=== PATIENT | female | born 1950 | race Caucasian/White ===

== ENCOUNTER → 2017-04-21 | Outpatient (CLI) | payer OTHER, MEDICARE ==
--- NOTE | 2017-04-24 08:01 | MAMMOGRAPHY REPORT ---
BILATERAL DIGITAL SCREENING MAMMOGRAM TOMOSYNTHESIS WITH CAD: 04/21/2017 CLINICAL HISTORY: Routine screening. Patient has no complaints. TECHNIQUE: Breast tomosynthesis in addition to standard 2D mammography was performed. Current study was also evaluated with a Computer Aided Detection (CAD) system. COMPARISON: Comparison is made to exams dated: 02/12/2016 mammogram, 12/09/2015 mammogram, 03/19/2015 ul trasound biopsy, 03/19/2015 mammogram, 02/02/2015 ultrasound, and 02/02/2015 mammogram - [facility]. BREAST COMPOSITION: There are scattered areas of fibroglandular density in both breasts. FINDINGS: There is a possible new small cluster of calcifications in the left upper inner quadrant m iddle depth, for which spot magnification views are recommended for further evaluation. The remainder of both breasts are stable compared to prior exams, without suspicious masses, calcific ations, or areas of architectural distortion noted. Biopsy marker clips are again noted bilaterally. Other scattered bilateral benign appearing calcifications are not significantly changed. IMPRESSION: ACR BI-RADS CATEGORY 0: INCOMPLETE EVALUATION: NEED ADDITIONAL IMAGING EVALUATION Left upper inner quadrant calcifications, for which additional imaging evaluation is recommended. Th e patient will be called to schedule an appointment. Approximately 10% of breast cancers are not detected with mammography. A negative mammographic report should not delay biopsy if a clinically suggestive mass is present. Pippa Isaac M.D. ah/:04/22/2017 10:51:51 Dandy Tender: Kimberley JAMES,R, M, [facility] letter sent: Addl Imaging 0 BI-RADS Code: ACR BI-RADS Category 0: Incomplete Evaluation: Need Additional Imaging Evaluation
== END | disposition home or self-care (01) ==
LOC: C.MAMM 13:25
PROVIDERS: ATTEND Family Medicine
DX: Z12.31 Encounter for screening mammogram for malignant neoplasm of breast (principal); R92.1 Mammographic calcification found on diagnostic imaging of breast

== ENCOUNTER → 2017-05-02 | Outpatient (CLI) | payer OTHER, MEDICARE ==
--- NOTE | 2017-05-02 15:21 | MAMMOGRAPHY REPORT ---
UNILATERAL LEFT DIGITAL DIAGNOSTIC MAMMOGRAM: 05/02/2017 CLINICAL HISTORY: 67-year-old woman with a history of prior benign bilateral breast biopsies called b ack from recent screening mammogram for new microcalcifications in the left breast. TECHNIQUE: Spot magnification CC and ML views were obtained. COMPARISON: Comparison is made to exams dated: 04/21/2017 mammogram, 02/12/2016 mammogram, 12/09/2015 m ammogram, 03/19/2015 ultrasound biopsy, 03/19/2015 mammogram, and 02/02/2015 ultrasound - [facility]. BREAST COMPOSITION: There are scattered areas of fibroglandular density in the left breast. FINDINGS: There is a 3 mm cluster of amorphous versus pleomorphic microcalcifications in the upper i nner anterior left breast, that is new comparing to prior mammograms. Given the interval development , definitive characterization with a stereotactic guided biopsy is recommended. No obvious associate d mass or architectural distortion. There is stable nodularity and other scattered calcifications in the anterior left breast. A stable T-shaped biopsy marker clip. IMPRESSION: ACR BI-RADS CATEGORY 4: SUSPICIOUS The new 3 mm cluster of amorphous and somewhat pleomorphic microcalcifications in the upper inner ant erior left breast is indeterminate, warranting definitive characterization with a stereotactic guided biopsy. These results and recommendations were discussed with the patient at the time of the exam. She tenta tively scheduled the biopsy prior to leaving our department. Approximately 10% of breast cancers are not detected with mammography. A negative mammographic report should not delay biopsy if a clinically suggestive mass is present. Nidia Hernandez M.D. ay/:05/02/2017 10:03:30 Lion Trainer: Adali JAMES(Yolanda)(Yahaira), [facility] letter sent: Abnormal 4/5 BI-RADS Code: ACR BI-RADS Category 4: Suspicious
== END | disposition home or self-care (01) ==
LOC: C.MAMM 08:36
PROVIDERS: ATTEND Family Medicine
DX: R92.0 Mammographic microcalcification found on diagnostic imaging of breast (principal)

== ENCOUNTER → 2017-10-18 | Outpatient (CLI) | payer OTHER, MEDICARE ==
[~2017-10-18] MED LIST: ATOR10TA82 PO; CHOL2000 PO; CYCL5TAB PO; Calcium PO; ESCI1TAB10 PO; GABA-112 PO; IBUP-103 PO; LEVO75TA PO; MELA1TAB5 PO; [UNRECOGNIZED DRUG - CODE]
[2017-10-18 14:58] VITALS: BP 112/68; PULSE 64; TEMP 36.7; O2SAT 96
--- NOTE | 2017-10-18 15:40 | Radiation Oncology Follow-Up ---
Radiation Oncology Follow-Up Date of Visit Oct 18, 2017. Reason For Visit One-month follow-up and cancer survivorship care plan Radiation Completion Date 09/15/17 Diagnosis (1) Intraductal carcinoma of left breast Status: Acute Onset Date: 05/15/2017 Stage: 0 Permanent Comment: Abnormal left breast mammogram Status post stereotactic core needle biopsy 05/15/2017 Intraductal carcinoma, grade 3 Estrogen receptor positive and progesterone receptor positive Status post lumpectomy 06/07/2017 Stage pTis NX, close margin Status post reexcision 07/26/2017 negative margins Status post completion of radiation therapy September 15, 2017. She received 5130 cGy utilizing hypo-fractionation. Last Edited By: Magali Martinez on Sep 22, 2017 10:08 History of Present Illness We are seeing Ms. Spain in consultation at the request of Dr. Lynch and Dr. Leon. The patient was accompanied by her . ECOG PS: 0 Ms. Spain presented with an abnormal mammogram. She had no other complaints at the time of her initial presentation. 04/21/2017 - Bilateral screening mammogram - Left upper inner quadrant calcifications, for which additional imaging evaluation is recommended. 05/02/2017 - Unilateral left diagnostic mammogram - The new 3 mm cluster of amorphous and somewhat pleomorphic microcalcifications in the upper inner anterior left breast is indeterminate, warranting definitive characterization with a stereotactic guided biopsy. 05/15/2017 - Stereotactic core biopsy of left breast lesion - ductal carcinoma in situ, grade 3, comedonecrosis present. Microcalcification associated with DCIS. Estrogen receptor positive. Progesterone receptor positive. 06/07/2017 - Left breast lumpectomy by Dr. 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 Comedonecrosis is present. The tumor measured 13 mm. The margins were uninvolved by DCIS in the closest margin was 1 mm. 07/26/2017 - Re-excision of left breast lumpectomy to obtain wider margins by Dr. Lizette Lynch - residual high-grade DCIS was noted 2 mm from the left new medial and lateral margins. 06/27/2017 - The patient was seen in consultation by Dr. Casa Leon for medical oncology. Dr. Leon recommended tamoxifen for 5 years for anti- hormonal therapy. Dr. Leon recommended consideration of adjuvant radiation therapy (also recommended by Dr. Lynch). We are now seeing the patient in consultation to discuss role of adjuvant radiation therapy. Currently, the patient is doing relatively well overall. She has healed well from her previous surgeries. She underwent a CT simulation was found to be a candidate for hypo- fractionation. Radiation was completed September 15, 2017. She received 5130 cGy Interim History She has been doing well over the past month. She denies any difficulty with skin irritation or healing. She denies any areas of tenderness. She has noted no masses or changes of the axilla. She has had no swelling of her arm. Follow -up mammography has been scheduled. She was seen by medical oncology and started on tamoxifen. She had multiple side effects including filling of generalized "buzzing". She felt weepy and cold. She spoke with the medical oncologist and decision was made to stop the medication. She is going to start an aromatase inhibitor. This is been called into her pharmacy and she will be picking it up. Allergies Coded Allergies: Tamoxifen (Verified Allergy, Severe, cold to the bone, buzzing in body, constipate black stool, 10/18/17) Penicillins (Verified Allergy, Intermediate, itchy, 11/23/14) Propofol (Verified Allergy, Intermediate, Unable to walk , 08/10/17) Adhesives (Verified Allergy, Mild, Rash, 08/10/17) Sulfa Antibiotics (Verified Allergy, Mild, Unknown , 08/10/17) Home Medications Scheduled Atorvastatin (Lipitor), 1 TAB PO DAILY Sdeppdi-Zyamuic-Jmhgfu Salicyl (Thornton Jackson Muscle Rub), prn Cholecalciferol (Vitamin D3), 1 CAP PO DAILY Escitalopram Oxalate (Lexapro), 10 MG PO DAILY Gabapentin (Neurontin), 2 CAP PO HS Levothyroxine Sodium (Synthroid), 1 TAB PO DAILY Melatonin (Kp Melatonin), 2 TAB PO HS [Calcium ], 600 MG PO BID Scheduled PRN Cyclobenzaprine Hcl (Flexeril), 0.5 TAB PO BID PRN for Muscle Spasms Ibuprofen Tab (Advil), 200-600 MG PO Q4H PRN for Pain Review of Systems Gastrointestinal: Symptoms: WNL Oral: Symptoms: No Problems Respiratory: Symptoms: WNL Urinary: Symptoms: WNL Skin: Symptoms: No Problems Breast: Right Upper Arm Measurement: 27.0 Right Mid Arm Measurement: 23.0 Right Wrist Measurement: 16.5 Left Upper Arm Measurement: 26.0 Left Mid Arm Measurement: 23.5 Left Wrist Measurement: 16.5 Arm Dominence: Right Physical Exam Vital Signs Date Time Temp Pulse Resp B/P (MAP) Pulse Ox O2 Delivery O2 Flow Rate FiO2 10/18/17 14:58 36.7 64 16 112/68 96 Fatigue: None General Appearance: no apparent distress Eyes: normal inspection, EOMI ENT: normal ENT inspection, hearing grossly normal Neck: no adenopathy, thyroid normal Respiratory/Chest: lungs clear, no respiratory distress, no accessory muscle use Breast: Breast examination reveals well-healed incision of the left breast. There are no masses or tenderness and no axillary adenopathy. There is slight hyperpigmentation. There are no skin retractions or nipple changes. Using the [place] score cosmesis she has a good outcome. The right breast showed no masses or tenderness and no axillary adenopathy. Cardiovascular: regular rate, rhythm, no gallop, no murmur Extremities: no pedal edema Neurologic/Psychiatric: no motor/sensory deficits, alert, normal mood/affect Skin: warm/dry Pain Management Patient Reports Pain: No Pain Location: None Patient Preferred Pain Scale: 0 - 10 Initial Pain Intensity: 0.0 Pain Management Plan She has no pain therefore requires no pain management. Laboratory Laboratory Results: not applicable Pathology Pathology Results: were reviewed, and pertinent findings noted in HPI Imaging Imaging Studies: were reviewed, and pertinent findings noted in HPI Assessment & Plan Plan: Continue with scheduled mammography. This is been set up through the breast surgeon. She is going to start an aromatase inhibitor. She recently underwent a Pap smear and pelvic examination. She was seen and examined by Dr. Leon. Today we completed a cancer survivorship care plan. A copy of the document was given to the patient. She was given a survivorship booklet. We asked her to return to our office in 6 months. She may call if she has any questions or concerns in the interim. Assessment & Plan (Attending) I agree with note created by Magali Martinez PA-C. I reviewed the patient's chart and information with her. I have examined and evaluated the patient. I reviewed relevant clinical information and answered the patient's and/or family' s questions. SOCIAL WORK JOB TITLES Total Time In Follow-Up I spent 20 minutes speaking to the patient and performing examination. I spent 20 minutes reviewing information, preparing the survivorship document, and completing this note. AK Total Time (Attending) In Follow-Up I spent 15 minutes examining and counseling the patient. SOCIAL WORK JOB TITLES Copy To Lizette Lynch MD; Casa Leon M.D.; Can Weathers III, M.D.
== END | disposition home or self-care (01) ==
LOC: C.ONC 14:45
PROVIDERS: ATTEND Physician Assistant Medical
DX: Z08 Encounter for follow-up examination after completed treatment for malignant neoplasm (principal); Z92.3 Personal history of irradiation; Z85.3 Personal history of malignant neoplasm of breast